=== PATIENT | female | born 1950 | race Caucasian/White ===

== ENCOUNTER → 2016-12-27 | Outpatient (CLI) | payer OTHER ==
[~2016-12-27] MED LIST: ALOE1CAP PO; ASPEC81 PO; AVN4; CHOL1000 PO; CITA20TA4 PO; CYAN100020 PO; FEXO1TAB49 PO; GLC500 PO; GLIP-199 PO; HYDC25 PO; LEVO100T84 PO; LEVO125T72 PO; LISI-461 PO; MAGN400T6 PO; METF500T PO; NXM/40 PO; OMEG10007 PO; PRLSR20 PO; SIMV10TA5 PO; SIMV40TA2 PO
[2016-12-27 12:57] LABS: THYROID STIMULATING HORMONE 2.03 uIu/ml (0.300-4.500)
[2016-12-27 13:06] LABS: ESTIMATED AVERAGE GLUCOSE 194 mg/dl; HA1C FLAG Normal (Normal)
== END | disposition home or self-care (01) ==
LOC: C.LABBFT 09:56
PROVIDERS: ATTEND Internal Medicine
DX: E11.9 Type 2 diabetes mellitus without complications (principal); E03.9 Hypothyroidism, unspecified

== ENCOUNTER → 2017-01-08 | Outpatient (CLI) | payer OTHER ==
--- NOTE | 2017-01-09 05:50 | PAP/PSG TECHNICIAN REPORT ---
[facility] Wet Pour Supervisor Polysomnogram Report Study name: None Report date: 01/09/2017 Study date: 01/08/2017 Referring Physician: Wes Burrell M.D. Name: KOFFI PASTRANA Interpreting Physician: Wes Burrell M.D. Date of : 1950 Wet Pour Supervisor: Ana Chaves RPS. Sex: Female Age: 66 StudyType: PSG Weight: 256 lbs Height: 66 years, Height 5' 6" Neck Circum: 14 inches BMI: 41.31 Medications: Allergy 10 mg, Aspirin 81 mg, Citalopram 20 mg, D1000, Glipizide ER 10 mg, HCTZ, Levothyroxine, Lisinopril 10 mg, Magnesium 250 mg, Metformin 500 mg, Nasonex 50 MCG/ACT, Omeprazole, Simvastatin Patient History 66 yr. old female here for a diagnostic sleep study in room #6. Patient complains of loud snoring, witnessed apneas, and HTN. Patients had two sons with PITER. Parameters Monitored NPSG: E1-M2, E2-M1, Fp1-M2, Fp2-M1, F3-M2, F4-M2, F4-M1, C3-M2, C4-M2, C4-M1, O1-M2, O2-M2, O2-M1, T3-M2, T4-M1, P3-M2, P4-M1, CHIN1, CHIN2, HR, EKG, Legs, PFLOW, SNOR, FLOW, CFLOW, Tidal Volume, THOR, ABDO, SpO2, PLTH, CPRESS, ETCO2 Wave, ETCO2, pH Sleep Architecture Sleep Stages Time at Lights Off 9:33:26 PM STAGES Time (min.) TST (%) Time at Lights On 5:30:56 AM Wake 105.0 -- Total Recording Time (TRT) 477.50 min. N1 30.5 8 Total Sleep Period (TSP) 431.0 min. N2 264.0 71 Total Sleep Time (TST) 372.5min. N3 37.5 10 Awake Time 105.0 min. REM 40.5 11 Wake after Sleep Onset 58.5 min. Sleep Efficiency (SE) 78 % Sleep Onset Latency (LIV) 46.5 min. Number of Stage 1 Shifts None Awakenings 31 Stage Changes 122 Number of REM periods 2 REM 40.5 11 REM Latency 302.0 min. NREM 332.0 89 Body Position Analysis Supine Right Left Side Prone Vertical Total Sleep Time (min.) 133.6 119.2 136.0 255.22 0.0 46.4 Total Sleep Time (%) 31% 32% 37% 69 0% N/A% Total Sleep Time REM (min.) 37.2 3.3 0.0 None 0.0 0.0 Total Sleep Time NREM (min.) 80.1 115.9 136.0 None 0.0 0.0 Intermittent Wake (min.) 16.3 18.2 24.0 None 0.0 46.4 Total Sleep Period (%) 31% None None None None None Arousals Myoclonus (PLM) * Events Count Index Events Count Index Spontaneous 5 1 Events Awake (PLMW) 96 54.9 Respiratory 2 0.6 Events Asleep w/ Arousal (PLMA) 49 7.9 PLM 47 8 Events Asleep w/o Arousal (PLMS) 203 32.7 Snoring 9 1 Total Asleep 252 40.6 Total 63 10 Total 348 44 Respiratory Analysis * CA OA MA CH H RERA Total Count 0 0 1 0 43 0 44 Index 0.0 0.0 0.2 0 6.9 0 7.1 Mean Duration 0.0 0.0 16.7 0.00 19.3 0.0 19.2 Longest Duration 0.0 0.0 16.7 0.00 16.7 0.0 45.9 Respiratory Event Summary Total Supine ~Supine Right Left Prone REM NREM Apneas Count 1 1 0 0 0 N/A 0 1 Index 0.2 1 0 0.0 0.0 N/A 0 0 Hypopneas (4% Desat) Count 43 21 22 4 18 N/A 18 25 Index 6.9 10.7 5 2.0 7.9 N/A 26.7 4.5 Apneas & All Hypopneas Count 44 22 22 4 18 N/A 18 26 Index 7.1 11 5 2 8 N/A 26.7 4.7 Respiratory Events (Boat Carpenter Mechanic+All Hyp+RERA) Count 44 22 22 4 18 N/A 18 26 Index 7.1 11 5 2.0 7.9 N/A 26.7 4.7 Respiratory Related Arousal Count 2 22 4 0 4 N/A 0 4 Index 0.6 0 1 0 2 N/A 0 1 Snoring Analysis Supine Right Left Prone REM NREM Total Snore duration 11.9 min Snores count 155 222 269 N/A 29 617 646 Snore mean duration 1.1 Sec Snores index 79 112 119 N/A 43.0 111.5 104.1 TST with snoring (%) 3.2% Desaturation Event Summary: Minimum %SpO2 Event Count Mean/Min/Max Duration(sec.) Desaturation Index % Time In Bed > 90 84 22.1 / 6.5 / 59.0 10.9 98.0 86 - 90 0 N/A 0.0 2.0 81 - 85 0 N/A 0.0 0.0 76 - 80 0 N/A 0.0 0.0 71 - 75 0 N/A 0.0 0.0 66 - 70 0 N/A 0.0 0.0 61 - 65 0 N/A 0.0 0.0 56 - 60 0 N/A 0.0 0.0 51 - 55 0 N/A 0.0 0.0 < 50 0 N/A 0.0 0.0 Total REM NREM Awake <50% 0.0 min. 0.0 min. 0.0 min. 0.0 min. 51 - 60% 0.0 min. 0.0 min. 0.0 min. 0.0 min. 61 - 70% 0.0 min. 0.0 min. 0.0 min. 0.0 min. 71 - 80% 0.0 min. 0.0 min. 0.0 min. 0.0 min. 81 - 90% 9.4 min. 4.0 min. 3.9 min. 1.5 min. 91 - 100% 463.2 min. 36.5 min. 328.0 min. 98.7 min. Average 93 93 93 94 Minimum SpO2 86 86 88 88 Desaturation Event Index 10.6 22.2 9.0 12.6 # Desat. Events below 89% 6 4 1 1 Time(%) with Saturation below 89% 0.2 0.2 0.0 0.0 Time(min.) with Saturation below 89% 0.9 0.7 0.1 0.1 Time (mins) REM (mins) NREM (mins) % of TST SpO2 Below 90% 18 9 N9 0.6 SpO2 Below 88% 2 0 0 0 Heart Rate Analysis Min (bpm) Max (bpm) Average (bpm) Awake 68 90 76 NREM 67 83 74 REM 68 83 75 Overall 67 83 74 Supplemental O2 Values Minimum O2 level: None Value Start Time End Time Wet Pour Supervisor Comments Mrs. Pastrana slept in the right, left, and supine positions. No cardiac arrhythmia. PLMs noted. No bruxism noted. Snoring was noted and scored as a 4 on a scale of 0 through 5. (0=no snoring, 5=snoring loud enough to be heard through a closed door or down the pang way) Mrs. Pastrana awoke to use the restroom once during the night. The final report will be interpreted and signed by a sleep physician. The completed physician report will then be placed in the patient medical record. Therapy (cm H2O) 0 TIB (min.) 477.5 TST (min.) 372.5 Sleep Onset (min.) 46.5 REM Onset From Sleep (min.) 302.0 Sleep Efficiency % 78 Wakefulness (%) 22 Wakefulness (min.) 105.0 NREM 1 (%) 8 NREM 1 (min.) 30.5 NREM 2 (%) 71 NREM 2 (min.) 264.0 NREM 3 (%) 10 NREM 3 (min.) 37.5 REM (%) 11 REM (min.) 40.5 # Arousals 63 Arousal Index 10 # Snore 646 Snore Index 104.1 AHI 7.1 AHI Supine 11 AHI Non-Supine 5 NREM AHI 4.7 REM AHI 26.7 RDI 7.1 # Obstructive Apnea 0 # Central Apnea 0 # Mixed Apnea 1 # Hypopneas 43 RERAs 0 Total Respiratory Events 48 Time Below SpO2 89% (min.) 0.8 Mean NREM SpO2 (%) 93 Mean REM SpO2 (%) 93 Mean Sleep SpO2 (%) 93 Min NREM SpO2 (%) 88 Min REM SpO2 (%) 86 Position Supine (min.) 133.6 Position Non-supine (min.) 255.2 LM Index Sleep 40.6 LM Index NREM 44.5 LM Index REM 8.9 Mean Heart Rate (bpm) 74 Min Heart Rate (bpm) 67
--- NOTE | 2017-01-11 09:30 | POLYSOMNOGRAPH REPORT ---
CLINICAL DATA: A 66-year-old female with BMI of 41.31 referred by myself and Dr. Juares with loud snoring, witnessed apnea, and hypertension. She has 2 sons with sleep apnea. SLEEP ARCHITECTURE: Total sleep period was 431 minutes. Total sleep time was 372.5 minutes divided between 332 minutes of non-REM sleep and 40.5 minutes of REM sleep. Sleep onset latency was 46.5 minutes. REM latency was 302 minutes. Sleep efficiency was 78%. Awake after sleep onset was 58.5 minutes. Sleep consisted of stage N1 8%, N2 71%, N3 10%, REM 11%. AROUSAL DATA: Sixty-three arousals were recorded for an index of 10 per hour. PLM DATA: Significantly elevated limb movements during sleep were noted. There were 252 limb movements during sleep noted for an index of 40.6 per hour with arousal index of 7.9 per hour. RESPIRATORY DATA: Mild sleep apnea was documented. The AHI was 7.1. There was 1 mixed apneic episode, 16.7 seconds in duration. There were 43 hypopneic episodes. The mean duration of hypopnea was 19.3 seconds. OXIMETRY DATA: Very mild transient nocturnal hypoxemia was seen. Oxygen rosemary was 86% during REM. The mean saturation was 93%. Time below 88% was 2 minutes. EKG: Heart rates ranged from 67 to 82 beats per minute. No arrhythmias were noted. COTTON PULLER'S COMMENTS: The patient slept in the right, left, and supine positions. No bruxism was noted. Snoring was severe, rated 4 on a scale of 1 through 5. IMPRESSION: Mild obstructive sleep apnea/hypopnea with an AHI of 7.1 with mild nocturnal hypoxemia. RECOMMENDATIONS: The patient may benefit from weight loss, use of an oral appliance, or a repeat sleep study with CPAP. Clinical correlation is needed. [facility]SING FACILITYNehemias
== END | disposition home or self-care (01) ==
LOC: C.NEUR 21:00
PROVIDERS: ATTEND Internal Medicine Pulmonary Disease
DX: R53.83 Other fatigue (principal); E66.01 Morbid (severe) obesity due to excess calories; R06.83 Snoring; G47.33 Obstructive sleep apnea (adult) (pediatric)

== ENCOUNTER → 2017-04-06 | Outpatient (CLI) | payer OTHER ==
--- NOTE | 2017-04-06 12:59 | MAMMOGRAPHY REPORT ---
UNILATERAL RIGHT DIGITAL DIAGNOSTIC MAMMOGRAM TOMOSYNTHESIS WITH CAD AND TARGETED RIGHT ULTRASOUND: 04/06/2017 CLINICAL HISTORY: 66-year-old woman presents for follow-up after a benign right breast stereotactic guided biopsy. Reassess a nodular asymmetry in the medial right breast and ensure stability after b iopsy. TECHNIQUE: Right breast tomosynthesis in addition to standard 2D mammography was performed. Current study was also evaluated with a Computer Aided Detection (CAD) system. COMPARISON: Comparison is made to exams dated: 10/18/2016 mammogram, 10/06/2016 ultrasound, 10/06/20 16 mammogram, 09/21/2016 mammogram, 09/17/2015 mammogram, and 12/06/2012 mammogram - [facility]. BREAST COMPOSITION: The tissue of the right breast is heterogeneously dense, which may obscure smal l masses. FINDINGS: There is a stable dumbbell shaped metallic biopsy marker in the 6:[address], denoting the site of recent benign stereotactic biopsy. A dense oval well-circumscribed mass wi th internal calcification measuring 15 mm is again seen in the far posterior lower outer right breas t. This represents a previously documented epidermal inclusion cyst, and the patient reports it has been present for many years. There are a few scattered and grouped stable microcalcifications in t he superior right breast. A 7.5 x 6.4 mm nodular asymmetry in the inferior, middle to anterior righ t breast on the MLO view is increasingly prominent compared to the prior MLO view, but this is thoug ht to represent the cyst documented in the 6:00 right breast on prior ultrasound. There is persiste nt 8 mm nodular asymmetry in the medial, middle one third of the right breast on the CC view that ap pears similar to the 2016 mammograms. However when comparing to all available prior mammograms, thi s is increasingly prominent comparing to the 2013 and prior exams. Further evaluation with ultrasou nd was performed in the medial right breast. No new focal area of architectural distortion or suspi cious spiculated or irregular mass is seen. No new suspicious cluster of microcalcification. Targeted ultrasound was performed in the medial and inferior right breast. Scanning over the suspec laura epidermal inclusion cyst in the 7:00 to 8:00 right breast near the inframammary fold redemonstra luis manuel a parallel hypoechoic mass with internal echogenic reflectors and punctum extending to the derma l surface. This is most compatible with an epidermal inclusion cyst. It currently measures 15.5 x 8.1 x 12.5 mm. In the 2:00 axis, 4 cm from the nipple, there are 2 adjacent tubular anechoic struct ures which could represent ectatic ducts, measuring 5.3 and 1.8 mm. However, there is a newly visua lized hypoechoic solid-appearing mass adjacent to the ectatic ducts measuring 3.5 x 2.2 x 3.4 mm. T hey margins are microlobulated. This could correlate with the nodular asymmetry seen mammographical ly but is indeterminate. Definitive characterization with tissue sampling is recommended. IMPRESSION: ACR BI-RADS CATEGORY 4: SUSPICIOUS, TARGETED ULTRASOUND ACR BI-RADS CATEGORY 4: SUSPICI OUS 1. Ultrasound guided core biopsy is recommended for an indeterminate solid microlobulated 3.4 mm ma ss in the 2:00 right breast, 4 cm from the nipple. Correlation with post procedure mammograms is re commended to see if this correlates with the nodular asymmetry in the medial right breast seen mammo graphically. 2. Increasingly conspicuous nodular asymmetry in the inferior right breast on the MLO view was thou ght to correlate with a previously documented cyst in the 6:00 axis of the right breast on ultrasoun d. However, at the time of ultrasound-guided core needle biopsy of the 2:00 breast, additional ultr asound should be performed throughout the inferior right breast for confirmation and to exclude the possibility of an additional solid mass. 3. Stable mammographic and sonographic appearance of the suspected epidermal inclusion cyst along t he inframammary fold of the 7 to 8:00 right breast. These results and recommendations were discussed with the patient at the time of the exam. She tent atively scheduled the right breast ultrasound guided core biopsy prior to leaving our department. Approximately 10% of breast cancers are not detected with mammography. A negative mammographic repor t should not delay biopsy if a clinically suggestive mass is present. Roxana Flowers M.D. ay/:04/06/2017 11:27:52 Dairy Processing Supervisor: Zuri OSPINA(Anne)(Joel), [facility] letter sent: Abnormal 4/5 BI-RADS Code: ACR BI-RADS Category 4: Suspicious Ultrasound BI-RADS: ACR BI-RADS Category 4: Suspic ious
== END | disposition home or self-care (01) ==
LOC: C.MAMM 10:32
PROVIDERS: ATTEND Internal Medicine
DX: N63 Unspecified lump in breast (principal)

== ENCOUNTER → 2017-04-14 | Outpatient (CLI) | payer OTHER ==
[~2017-04-14] MED LIST changes: -AVN4
--- NOTE | 2017-04-14 09:58 | Discharge Instructions ---
Discharge Instructions Procedure Procedure Date: Apr 14, 2017. Reason for visit: Right Mass. Discharge Discharge Date: Apr 14, 2017. Discharge Diagnosis: status post breast biopsy Instructions Activity Recommendations: Additional Limitations (see below) Return to School/Work: no limitations Recommended Home Diet: No Limitations Provider Instructions: ACTIVITY RECOMMENDATIONS: * No lifting, pushing, pulling or exercising the affected side for three days. RETURN TO SCHOOL/WORK: * You may return to work/school after the procedure, but do not perform any strenuous activities for 24 to 48 hours. MEDICATIONS: * Tylenol (two 325 mg) every four to six hours if needed for mild pain (if not allergic to Tylenol). DIET: * Resume previous diet. SPECIAL CARE INSTRUCTIONS: * Keep biopsy site dry for 24 hours. May shower after 24 hours, but do not soak (bathe) incision. * May remove Tegaderm (plastic patch) tomorrow AFTER showering. * Leave the steri-strips on for one week. Allow the steri-strips to fall off by themselves. If not off after one week, you may remove them. You may place a Bandaid crosswise over the strips, if desired. * Apply ice 10 minutes on and 10 minutes off as needed. * Wear a bra at bedtime to sleep more comfortably for 2-3 days. * Your referring physician should have the results after approximately 5 to 7 business days. * Call for unusual bleeding, fever, drainage, etc or if you have any questions call during normal business hours or after hours call Dr Hernandez, [phone]. FOLLOW UP VISIT: Follow-up with Referring Physician as scheduled. Allergies Coded Allergies: Sulfa Drugs (Unverified Allergy, Mild, RASH, 04/12/17) Sergio Maloney Recommendations: Call your doctor if: * Temperature above 101 degrees * Pain not relieved by pain medicine ordered * There is increased drainage or redness from any incision * You have any unanswered questions or concerns. Your Doctors Instructions noted above were prepared by provider Nicole Hernandez. Patient Signature Section: Patient Instructions Signature Page Evonne Pastrana Patient (or Guardian) Signature/Date: I have read and understand the instructions given to me by my caregivers. Caregiver/RN/Doctor Signature/Date: The above-named patient and/or guardian has received patient instructions on this date. + Original Patient Signature Page (only) stays with chart. Please make copy for patient.
--- NOTE | 2017-04-14 12:56 | MAMMOGRAPHY REPORT ---
ULTRASOUND GUIDED BIOPSY RIGHT BREAST: 04/14/2017 CLINICAL HISTORY: Right 2:00 breast mass. PATIENT CONSENT: The procedure, risks and benefits were discussed with the patient and informed writt en consent was obtained. A timeout was performed immediately prior to the procedure. PROCEDURE DESCRIPTION: Preprocedural ultrasound demonstrates persistent of the right 2:00 breast mass. Additionally, ultras ound was performed in the right inferior breast is recommended on the prior diagnostic report. In th e right breast at 6:00, 47 m from the nipple, there is an oval anechoic circumscribed 7 x 5 mm mass, consistent with a benign cyst. This corresponds one of the mammographic masses. With ultrasound guidance, aseptic technique, and lidocaine as the local anesthetic (1% lidocaine to a nesthetize the skin and 1% lidocaine with epinephrine to anesthetize the deeper tissues), the mass of concern in the right 2:00 breast was sampled 4 times with a 14-gauge Achieve biopsy needle. Immedi ately thereafter, with ultrasound guidance, aseptic technique, and lidocaine as the local anesthetic, a metallic localizer clip was placed at the biopsy site. Direct pressure was applied to the site im mediately post procedure and hemostasis was achieved. Postprocedure unilateral mammograms were perfo rmed to confirm placement of the clip in the expected location of the breast mass. The patient jonn ated the procedure without complication. She was given wound care instructions. The specimens were s ent to pathology for analysis. COMPARISON: Comparison is made to exams dated: 04/06/2017 ultrasound, 04/06/2017 mammogram, 10/18/2016 mammogram, 10/06/2016 ultrasound, 10/06/2016 mammogram, and 09/21/2016 mammogram - [facility]. IMPRESSION: ULTRASOUND GUIDED BIOPSY Ultrasound guided core needle biopsy of the right 2:00 breast mass, with clip placement. The patient will receive pathology results from her referring provider. Nicole Hernandez M.D. /:04/14/2017 10:24:24 Anglesmith: Tiffanie OSPINA(R)(M), [facility]
--- NOTE | 2017-04-14 12:56 | MAMMOGRAPHY REPORT ---
UNILATERAL RIGHT DIGITAL DIAGNOSTIC MAMMOGRAM TOMOSYNTHESIS: 04/14/2017 CLINICAL HISTORY: Status post ultrasound guided biopsy of the right breast. TECHNIQUE: Breast tomosynthesis in addition to standard 2D mammography was performed. Right CC and ML tomosynthesis images including C views were obtained post procedure. COMPARISON: Comparison is made to exams dated: 04/06/2017 mammogram, 10/18/2016 mammogram, 09/21/2016 m ammogram, 09/17/2015 mammogram, and 12/06/2012 mammogram - [facility]. BREAST COMPOSITION: The tissue of the right breast is heterogeneously dense, which may obscure small masses. FINDINGS: A new biopsy marker clip is seen in the expected location of the biopsy right 2:00 breast mass. This is located in the region of the asymmetry seen medially, indicating good correlation betw een the biopsied sonographic finding and the mammographic finding. No significant postbiopsy hematom a is seen. IMPRESSION: POST PROCEDURE IMAGING FOR MARKER PLACEMENT New biopsy marker clip status post ultrasound guided biopsy of the right 2:00 breast mass. Pathology results are pending. Approximately 10% of breast cancers are not detected with mammography. A negative mammographic report should not delay biopsy if a clinically suggestive mass is present. Nicole Hernandez M.D. ah/:04/14/2017 10:27:10 Director Of Graduate Medical Education: Tiffanie OSPINA(Anne)(M), [facility] BI-RADS Code: Post Procedure Imaging For Marker Placement
== END | disposition home or self-care (01) ==
LOC: C.MAMM 09:18
PROVIDERS: ATTEND Internal Medicine
DX: N63 Unspecified lump in breast (principal); Z01.818 Encounter for other preprocedural examination; N60.91 Unspecified benign mammary dysplasia of right breast

== ENCOUNTER → 2017-04-14 | Outpatient (CLI) | payer OTHER ==
[2017-04-12 09:37] VITALS: Ht 167.6 cm; Wt 118.2 kg
[~2017-04-14] VITALS: Ht 167.6 cm; Wt 118.2 kg
[2017-04-14 12:26] LABS: BASO % 0.4 %; BASO ABS # 0.03 K/uL (0-0.2); COMPLETE YES; EOS % 2.3 %; HEMATOCRIT 38.5 % (37-47); IG% 0.2 %; LYMPH % 32.9 %; LYMPH ABS # 2.72 K/uL (1.2-3.4); MEAN CELL VOLUME 85.2 fL (80-100); MEAN CORPUSCULAR HEMOGLOBIN 28.3 pg (25-34); MEAN CORPUSCULAR HGB CONC 33.2 g/dl (32-36); MEAN PLATELET VOLUME 12.2 fL (7.4-10.4); NEUT % 58.2 %; PLATELET COUNT 269 K/uL (130-400); RED BLOOD COUNT 4.52 M/uL (4.2-5.4); WHITE BLOOD COUNT 8.28 K/uL (4.8-10.8)
[2017-04-14 13:03] LABS: BUN/CREATININE RATIO 10.2 (10-20); CREATININE 1.1 mg/dl (0.60-1.20); POTASSIUM 3.7 mmol/L (3.5-5.1)
[2017-04-14 13:24] LABS: BETA-HYDROXYBUTYRATE 1.05 mg/dL (0.2-2.81)
== END | disposition home or self-care (01) ==
LOC: C.LAB 08:00 → EDSTATUS 04-15 07:30
PROVIDERS: ATTEND Obstetrics & Gynecology
DX: Z01.818 Encounter for other preprocedural examination (principal)

== ENCOUNTER → 2017-05-20 | Outpatient (CLI) | payer OTHER ==
[2017-05-20 13:02] LABS: ESTIMATED AVERAGE GLUCOSE 229 mg/dl; HA1C FLAG Normal (Normal)
== END | disposition home or self-care (01) ==
LOC: C.LABBFT 11:24
PROVIDERS: ATTEND Internal Medicine
DX: E11.9 Type 2 diabetes mellitus without complications (principal)

== ENCOUNTER 2017-07-22 07:30 | Day surgery (SDC) | payer OTHER ==
[2017-07-07 11:01] VITALS: BMI 40.0
--- NOTE | 2017-07-07 11:39 | PAT Medication Instructions ---
Service Date Jul 07, 2017. Current Home Medication List Aloe Vera (Aloe Vera Concentrate), 1 CAP PO QAM Aspirin Enteric Coated (Ecotrin Or Generic *), 81 MG PO HS Cholecalciferol (Vitamin D3), 1 TAB PO QAM Citalopram Hydrobromide (Citalopram Hydrobromide), 1 TAB PO HS Cyanocobalamin (Vitamin B12), 1,000 MCG PO QAM Fexofenadine Hcl (Manisha Allergy), 1 TAB PO HS Fish Oil (Wyatt-3), 1 CAP PO QAM Glipizide (Glipizide Er), 1 TAB PO HS Hydrochlorothiazide (Hctz *), 25 MG PO QPM Levothyroxine Sodium (Synthroid), 125 MCG PO HS Lisinopril (Zestril), 10 MG PO QPM Magnesium Oxide (Mag-Ox), 400 MG PO QAM Metformin Hcl (Glucophage *), 1,000 MG PO QAM Metformin Hcl (Glucophage), 1,500 MG PO QPM Omeprazole (Prilosec), 20 MG PO QPM Simvastatin (Zocor), 10 MG PO QPM Medication Instructions For Your Scheduled Surgery - Check with surgeon for instructins: Aspirin Enteric Coated (Ecotrin Or Generic *), 81 MG PO HS - Hold the following medications 2 weeks: Aloe Vera (Aloe Vera Concentrate), 1 CAP PO QAM Fish Oil (Wyatt-3), 1 CAP PO QAM - Hold the following medications 48 hours prior to surgery: Metformin Hcl (Glucophage *), 1,000 MG PO QAM Metformin Hcl (Glucophage), 1,500 MG PO QPM - Hold the following medications the morning of surgery: Cholecalciferol (Vitamin D3), 1 TAB PO QAM Cyanocobalamin (Vitamin B12), 1,000 MCG PO QAM Magnesium Oxide (Mag-Ox), 400 MG PO QAM - Hold the following medications as scheduled the night before surgery: Lisinopril (Zestril), 10 MG PO QPM - Take the following medications as scheduled the night before surgery: Omeprazole (Prilosec), 20 MG PO QPM Simvastatin (Zocor), 10 MG PO QPM Levothyroxine Sodium (Synthroid), 125 MCG PO HS Hydrochlorothiazide (Hctz *), 25 MG PO QPM Glipizide (Glipizide Er), 1 TAB PO HS Fexofenadine Hcl (Manisha Allergy), 1 TAB PO HS Citalopram Hydrobromide (Citalopram Hydrobromide), 1 TAB PO HS If you have any questions please call us at [phone] or [phone] or [phone]
--- NOTE | 2017-07-07 12:15 | DIAGNOSTIC IMAGING REPORT ---
CHEST 2 VIEWS ROUTINE HISTORY: 66 years-old Female preadmission exam. No reported chest complaints. COMPARISON: None available TECHNIQUE: Frontal and lateral views of the chest. FINDINGS: Cardiomediastinal and hilar silhouettes are within normal limits. There is atherosclerosis of the aorta. No pneumothorax, pleural effusion or focal airspace consolidation. No overt pulmonary edema. Surgical clips within the right upper abdomen suggest prior cholecystectomy. Bones are grossly intact. IMPRESSION: No acute cardiopulmonary process. The above report was generated using voice recognition software. It may contain grammatical, syntax or spelling errors. Electronically signed by: Adam Bell M.D. 07/07/2017 12:14 PM Dictated Date/Time: 07/07/2017 12:13 PM
[2017-07-07 12:37] LABS: BASO % 0.4 %; BASO ABS # 0.03 K/uL (0-0.2); COMPLETE YES; EOS % 2.7 %; IG% 0.3 %; LYMPH % 26.5 %; LYMPH ABS # 2.04 K/uL (1.2-3.4); MEAN CELL VOLUME 85.8 fL (80-100); MEAN CORPUSCULAR HEMOGLOBIN 28.3 pg (25-34); MEAN PLATELET VOLUME 11.9 fL (7.4-10.4); NEUT % 62.1 %; PLATELET COUNT 216 K/uL (130-400); RED BLOOD COUNT 4.31 M/uL (4.2-5.4); WHITE BLOOD COUNT 7.71 K/uL (4.8-10.8)
[2017-07-07 14:04] LABS: BUN/CREATININE RATIO 24.9 (10-20); CALCIUM 8.9 mg/dl (8.5-10.1); CREATININE 0.81 mg/dl (0.60-1.20); POTASSIUM 4.1 mmol/L (3.5-5.1)
[~2017-07-22] VITALS: Ht 167.6 cm; Wt 113.4 kg
[~2017-07-22 07:30] MED LIST changes: +LACTATED RINGER'S 1000ML 1,000 ML IV SCH; -LEVO100T84 PO; -NXM/40 PO; -SIMV40TA2 PO
[2017-07-22 08:07] VITALS: BP 124/62; PULSE 73; TEMP 36.8; O2SAT 95; Ht 167.6 cm; Wt 113.4 kg
[2017-07-22] MEDS ORDERED: MIDAZOLAM HCL 1 MG/ML 2ML VIAL ONE (08:08)
[2017-07-22] MEDS ORDERED: FENTANYL CITRATE INJ 50 MCG/1 ML 2 ML VIAL ONE ×2 (08:09→10:27)
[2017-07-22] MEDS ORDERED: ATROPINE SULFATE 0.1 MG/ML 5ML SYR IV PRN (08:30)
[2017-07-22] MEDS ORDERED: ONDANSETRON INJ 2 MG/ML 2 ML VIAL IV PRN ×2 (08:30→12:15)
[2017-07-22] MEDS ORDERED: EpHEDrine SULFATE INJ 50 MG/ML AMP IV PRN (08:30)
[2017-07-22] MEDS ORDERED: FENTANYL CITRATE INJ 50 MCG/1 ML 2 ML VIAL IV PRN (08:30)
--- NOTE | 2017-07-22 10:07 | History & Physical Bridge Note ---
H&P Re-Evaluation Bridge Note: I have examined the patient, reviewed the History & Physical and in the interval since the performance of the History & Physical I have noted the following changes of clinical significance: No changes noted
[2017-07-22] MEDS ORDERED: PROPOFOL IV EMULSION 10 MG/ML 20 ML VIAL IV ONE (10:27)
[2017-07-22] MEDS ORDERED: LIDOCAINE HCL 2% 2 ML VIAL (20MG/ML) ONE (10:27)
[2017-07-22] MEDS ORDERED: DEXAMETHASONE SOD INJ 4 MG/ML VIAL ONE (10:27)
[2017-07-22] MEDS ORDERED: ONDANSETRON INJ 2 MG/ML 2 ML VIAL ONE (10:27)
[2017-07-22] MEDS ORDERED: KETOROLAC TROMETHAMINE 30 MG/ML VIAL ONE (11:42)
[2017-07-22] MEDS ORDERED: SODIUM CHLORIDE 0.9% 1000ML 1,000 ML IV SCH (12:06)
--- NOTE | 2017-07-22 12:06 | [facility] Operative Report ---
Operative Report Operative Date Jul 22, 2017. Pre-Operative Diagnosis endoCervical Mass, postmenopausal bleeding Post-Operative Diagnosis same Procedure(s) Performed Hysterscopy, dilation and currettage, resection endocervical fibroid Surgeon Dr. Maguire Computer Numeric Control Setter Surgeon(s) none Estimated Blood Loss 50ml Findings large sessile submucosal fibroid. otherwise atrophic lining. Fluids 1000 Specimens a. endocervical fibroid Drains none Anesthesia general Complication(s) None Disposition Recovery Room / PACU I attest to the content of the Intraoperative Record and any orders documented therein. Any exceptions are noted below.
--- NOTE | 2017-07-22 12:13 | Discharge Instructions ---
Discharge Instructions Date of Service Jul 22, 2017. Visit Reason for Visit: Post Menopausal Bleeding Discharge Discharge Diagnosis / Problem: endocervical fibroid resection Discharge Goals Goal(s): Therapeutic intervention Activity Recommendations Activity Limitations: per Instructions/Follow-up section Anesthesia . Post Anesthesia Instructions: If you have had General Anesthesia or IV Sedation: * Do not drive today. * Resume driving when surgeon permits. * Do not make important decisions or sign legal documents today. * Call surgeon for: 1. Temperature elevations greater than 101 degrees F. 2. Uncontrollable pain. 3. Excessive bleeding. 4. Persistent nausea and vomiting. 5. Medication intolerance (nausea, vomiting or rash). * For nausea and vomiting use only clear liquids such as: tea, soda, bouillon until nausea subsides, then gradually increase diet as tolerated. * If you have any concerns or questions, call your surgeon's office. If physician is unavailable and it is an emergency, call 911 or go to the nearest emergency room. . Instructions / Follow-Up Instructions / Follow-Up ACTIVITY RECOMMENDATIONS: * Avoid tampons, douching, hot tubs, pools, and intercourse until bleeding has stopped. * May shower as usual. * No strenuous activity for 24-48 hours. After 24-48 hours, you may do anything you feel like doing (driving and sports are okay). SPECIAL CARE INSTRUCTIONS: Special Diet: * Mild nausea may occur in the immediate post-operative period. * Take clear liquids such as tea, cola or bouillon until all nausea has subsided; you may then resume your normal diet. Special Care: * Light bleeding and vaginal spotting can last from a few days to 3-4 weeks. Call your doctor if bleeding becomes heavier than the heaviest part of your period. * Check your temperature twice a day for one week. If it goes above 100.4 degrees Fahrenheit (38.0 Celsius), notify your doctor. * Call your doctor's office for an appointment for 6 weeks after your surgery. FOLLOW-UP VISIT: Call your doctor's office for an appointment for 6 weeks after your surgery. Diet Recommendations Recommended Home Diet: resume previous diet Procedures Procedures Performed: Hysterscopy, dilation and currettage, resection endocervical fibroid Pending Studies Studies pending at discharge: no Medical Emergencies . Who to Call and When: Medical Emergencies: If at any time you feel your situation is an emergency, please call 911 immediately. . Non-Emergent Contact Non-Emergency issues call your: Soft Work Wrapper Layer And Examiner . . "Provider Documentation" section prepared by Kusum Powell. .
[2017-07-22] MEDS ORDERED: IBUPROFEN 600 MG TAB PO PRN (12:15)
[2017-07-22] MEDS ORDERED: OXYCODONE/ACETAMINOPHEN 5-325 TAB PO PRN (12:15)
[2017-07-22] MEDS ORDERED: KETOROLAC TROMETHAMINE 15 MG/ML VIAL IV. PRN (12:15)
[2017-07-22] MEDS ORDERED: PROMETHAZINE HCL INJ 25 MG in SODIUM CHLORIDE 0.9% 50ML 50 ML IV PRN (12:15)
--- NOTE | 2017-07-22 12:28 | Anesthesiology Progress Note ---
Anesthesia Post Op Note Date & Time Jul 22, 2017 at 12:28 Vital Signs Pain Intensity: 0 Vital Signs Past 12 Hours Date Time Temp Pulse Resp B/P (MAP) Pulse Ox O2 Delivery O2 Flow Rate FiO2 07/22/17 12:25 68 18 127/75 94 Room Air 07/22/17 12:15 66 18 135/68 100 Oxymask 15 07/22/17 12:05 73 18 140/68 99 Oxymask 15 07/22/17 11:55 36.4 85 18 174/81 95 Oxymask 15 07/22/17 08:07 36.8 73 20 124/62 (82) 95 Room Air Notes Mental Status: alert / awake / arousable, participated in evaluation Pt Amnestic to Procedure: Yes Nausea / Vomiting: adequately controlled Pain: adequately controlled Airway Patency, RR, SpO2: stable & adequate BP & HR: stable & adequate Hydration State: stable & adequate Anesthetic Complications: no major complications apparent
[2017-07-22 12:40] VITALS: BP 139/65; PULSE 67; TEMP 36.5; O2SAT 94
[2017-07-22 13:10] VITALS: BP 139/65; PULSE 72; O2SAT 97
[2017-07-22 13:30] VITALS: BP 119/63; PULSE 70; TEMP 36.2; O2SAT 95
--- NOTE | 2017-07-22 20:38 | OPERATIVE REPORT ---
DATE OF OPERATION: 07/22/2017 PREOPERATIVE DIAGNOSIS: Postmenopausal bleeding with prolapsing endocervical or submucosal fibroid. POSTOPERATIVE DIAGNOSIS: Same. PROCEDURE: D&C, hysteroscopy and resection of submucosal and endocervical fibroid. SURGEON: Dr. Kusum Garcia. ANESTHESIA: General. BLOOD LOSS: 50 mL. HISTORY OF PRESENT ILLNESS: The patient is a 66-year-old white female who had presented with sudden onset of postmenopausal bleeding. On initial exam, she was noted to have a mass prolapsing through the cervical os. After going through appropriate presurgical evaluation, she was then scheduled for the D&C hysteroscopy and resection. The patient then noted that spotting had stopped then resumed, but was much monotypist than her prior presentation. On exam, the fibroid was no longer visualized in the cervical os. GROSS FINDINGS: The uterus is normal size and mobile. There are no adnexal masses present. The perineum is multiparous and without lesions. Cervix: The cervical os is dilated to a #30 Hanks dilator without instrumental dilation. The prolapsed submucosal endocervical fibroid that was noted prior was no longer visible. Under hysteroscopic evaluation, the submucosal fibroid was seen filling the uterine cavity. There were no other abnormalities present and with removal of the fibroid, the lining was noted to be atrophic. Both tubal ostias could be identified,& were in the normal configuration after the fibroid was removed. PROCEDURE: After the patient received adequate general anesthetic, she was prepped and draped in the usual sterile fashion. After the bladder was emptied, a weighted speculum was placed in the vagina and the anterior lip was grasped with a single tooth tenaculum. The small hysteroscope was inserted, but because the cervix was so dilated already, adequate distention of the uterine cavity could not be accomplished. Using Allis clamps, the cervical os was reduced so that at least most of the fluid would stay in the uterine cavity. The pressure was also increased on the saline infuser. The MyoSure was then used to remove the fibroid in total. Post-MyoSure, hysteroscopy revealed there was no remaining fibroids or other abnormalities present. There was a tear in the cervix on the right and this was repaired with 3-0 chromic. This area was repaired because it was bleeding. At this point, the cervix and bleeding were hemostatic and the case was terminated. There was 10 liters of fluid used with 90 mL deficit. Normal saline was used as the expanding medium. The patient tolerated the procedure well and was stable upon arrival in recovery room. I attest to the content of the Intraoperative Record and any orders documented therein. Any exceptions are noted below. MTDD
== END 2017-07-22 13:30 | disposition home or self-care (01) ==
LOC: C.ACU 07:30
PROVIDERS: ATTEND Obstetrics & Gynecology
DX: N84.0 Polyp of corpus uteri (principal); N95.0 Postmenopausal bleeding; F32.9 Major depressive disorder, single episode, unspecified; K21.9 Gastro-esophageal reflux disease without esophagitis; E78.5 Hyperlipidemia, unspecified; E03.9 Hypothyroidism, unspecified; G60.9 Hereditary and idiopathic neuropathy, unspecified; E11.9 Type 2 diabetes mellitus without complications; G47.30 Sleep apnea, unspecified; E66.01 Morbid (severe) obesity due to excess calories; Z68.41 Body mass index [BMI] 40.0-44.9, adult; Z79.82 Long term (current) use of aspirin; Z80.1 Family history of malignant neoplasm of trachea, bronchus and lung; Z81.1 Family history of alcohol abuse and dependence

== ENCOUNTER → 2017-10-24 | Outpatient (CLI) | payer OTHER ==
[~2017-10-24] MED LIST changes: -LACTATED RINGER'S 1000ML 1,000 ML IV SCH
[2017-10-24 12:47] LABS: ESTIMATED AVERAGE GLUCOSE 189 mg/dl; HA1C FLAG Normal (Normal)
[2017-10-24 12:48] LABS: URINE APPEARANCE CLEAR (CLEAR); URINE BILIRUBIN NEG (NEG); URINE COLOR YELLOW; URINE NITRITE NEG (NEG); URINE SPECIFIC GRAVITY 1.015 (1.000-1.030); UROBILINOGEN NEG (NEG); ZZUR CULT IF INDIC CLEAN CATCH YES
[2017-10-24 12:58] LABS: MANUAL MICROSCOPIC REQUIRED? NO; REVIEW REQ? NO
[2017-10-24 13:41] LABS: CREATININE RANDOM URINE 91.2 mg/dl
[2017-10-24 17:55] LABS: ALT/SGPT 20 U/L (12-78); BLOOD UREA NITROGEN 18 mg/dl (7-18); BUN/CREATININE RATIO 16.8 (10-20); CALCIUM 8.9 mg/dl (8.5-10.1); CARBON DIOXIDE 26 mmol/L (21-32); CHLORIDE 100 mmol/L (98-107); CHOLESTEROL 113 mg/dl (0-200); CREATININE 1.09 mg/dl (0.60-1.20); GLUCOSE 178 mg/dl (70-99); POTASSIUM 4.1 mmol/L (3.5-5.1); SODIUM 134 mmol/L (136-145)
[2017-10-24 18:06] LABS: ALB/GLOB RATIO 0.8 (0.9-2); ALKALINE PHOSPHATASE 59 U/L (45-117); AST/SGOT 12 U/L (15-37); CHOLESTEROL/HDL RATIO 2.2; HDL CHOLESTEROL 51 mg/dl; LDL CHOLESTEROL CALCULATED 40 mg/dl; TRIGLYCERIDES 108 mg/dl (0-150); VERY LOW DENSITY LIPOPROT CALC 22 mg/dl
== END | disposition home or self-care (01) ==
LOC: C.LABBFT 10:51
PROVIDERS: ATTEND Internal Medicine
DX: Z86.39 Personal history of other endocrine, nutritional and metabolic disease (principal); E78.5 Hyperlipidemia, unspecified; E03.9 Hypothyroidism, unspecified

== ENCOUNTER → 2018-01-02 | Outpatient (CLI) | payer OTHER ==
--- NOTE | 2018-01-03 15:25 | MAMMOGRAPHY REPORT ---
BILATERAL DIGITAL SCREENING MAMMOGRAM TOMOSYNTHESIS WITH CAD: 01/02/2018 CLINICAL HISTORY: Routine screening. Patient has no complaints. TECHNIQUE: Breast tomosynthesis in addition to standard 2D mammography was performed. Current study was also evaluated with a Computer Aided Detection (CAD) system. COMPARISON: Comparison is made to exams dated: 04/14/2017 mammogram, 04/06/2017 mammogram, 10/18/2016 ma mmogram, 09/21/2016 mammogram, 09/17/2015 mammogram, and 12/06/2012 mammogram - [facility] nter. BREAST COMPOSITION: There are scattered areas of fibroglandular density in both breasts. FINDINGS: There are 2 new clusters of microcalcifications in the upper outer middle and posterior le ft breast, warranting additional spot magnification views. A triangular palpable marker was placed over a palpable lump in the 7:00 posterior right breast near the inframammary fold that the patient reports she has felt for many years, and was previously docume nted to have a punctum extending to the dermal surface on targeted ultrasound dated 04/14/2017. This most likely represents a sebaceous cyst or epidermal inclusion cyst. There are stable postbiopsy changes in the medial right breast, with ribbon-shaped biopsy clip remain ing in place. No other suspicious mass, architectural distortion or cluster of microcalcifications is seen. IMPRESSION: ACR BI-RADS CATEGORY 0: INCOMPLETE EVALUATION: NEED ADDITIONAL IMAGING EVALUATION The 2 clusters of microcalcifications in the left upper outer breast need additional evaluation. The patient will be called to schedule an appointment. Approximately 10% of breast cancers are not detected with mammography. A negative mammographic report should not delay biopsy if a clinically suggestive mass is present. Roxana Flowers M.D. ay/:01/02/2018 16:26:36 Welding Pantograph Machine Operator: Zoila SPANGLER)(Joel), [facility] letter sent: Addl Imaging 0 BI-RADS Code: ACR BI-RADS Category 0: Incomplete Evaluation: Need Additional Imaging Evaluation
== END | disposition home or self-care (01) ==
LOC: C.MAMM 11:49
PROVIDERS: ATTEND Internal Medicine
DX: Z12.4 Encounter for screening for malignant neoplasm of cervix (principal); R92.0 Mammographic microcalcification found on diagnostic imaging of breast

== ENCOUNTER → 2018-01-11 | Outpatient (CLI) | payer OTHER ==
--- NOTE | 2018-01-11 15:57 | MAMMOGRAPHY REPORT ---
UNILATERAL LEFT DIGITAL DIAGNOSTIC MAMMOGRAM: 01/11/2018 CLINICAL HISTORY: Callback from screening mammogram for left breast calcifications. The patient is s tatus post right breast stereotactic biopsy for calcifications October 2016 which yielded a scleroti c fibroadenoma. TECHNIQUE: Spot magnification left CC and ML views were obtained. COMPARISON: Comparison is made to exams dated: 01/02/2018 mammogram, 04/14/2017 mammogram, 10/18/2016 ma mmogram, 09/21/2016 mammogram, 09/17/2015 mammogram, and 12/06/2012 mammogram - [facility] nter. BREAST COMPOSITION: There are scattered areas of fibroglandular density in the left breast. FINDINGS: There are two similar-appearing clusters of punctate and amorphous calcifications within th e left upper outer quadrant. The cluster in the left upper outer quadrant middle depth measures 4 mm and the more posterior cluster measures 6 mm. The calcifications are likely not significantly hernandez ed compared to the September 2016 exam. Additionally, the calcifications appear similar to the previo usly biopsied right breast calcifications which yielded a sclerotic fibroadenoma. The calcifications are probably benign and likely represent fibroadenomas. IMPRESSION: ACR-BI-RADS CATEGORY 3: PROBABLY BENIGN Two small clusters of calcifications within the left upper outer quadrant appear similar to the previ ously biopsied right breast calcifications which yielded a benign sclerotic fibroadenoma. The calcif ications are probably benign and likely also represent fibroadenomas. Recommend follow-up diagnostic mammograms of the left breast in 6 months to confirm stability. The patient has been verbally notified of the results. Approximately 10% of breast cancers are not detected with mammography. A negative mammographic report should not delay biopsy if a clinically suggestive mass is present. Nicole Hernandez M.D. /:01/11/2018 11:56:51 Commercial Maintenance Technician: Maya OSPINA(Anne)(M), [facility] letter sent: Follow Up Recommended 3 BI-RADS Code: ACR-BI-RADS Category 3: Probably Benign
== END | disposition home or self-care (01) ==
LOC: C.MAMM 11:34
PROVIDERS: ATTEND Internal Medicine
DX: R92.1 Mammographic calcification found on diagnostic imaging of breast (principal)